=== PATIENT | female | born 1990 | race Two or more races ===

== ENCOUNTER 2018-11-24 09:30 | Emergency (ER) | payer MEDICAID ==
[~2018-11-24] VITALS: Ht 160 cm; Wt 102.5 kg
[2018-11-24 09:35] VITALS: BP 124/75
[2018-11-24 10:28] LABS: Urine Bacteria FEW /hpf (None Seen); Urine Blood Negative /uL (Negative); Urine Mucus FEW (None Seen); Urine Specific Gravity 1.021 (1.001-1.035); Urine WBC 1 /hpf (0 - 5)
== END 2018-11-24 11:21 | disposition home or self-care (01) ==
LOC: ER 09:32
DX: R10.2 Pelvic and perineal pain (principal)
CPT/HCPCS: 81001; 81025

== ENCOUNTER 2019-03-24 14:39 | Emergency (ER) | payer MEDICAID ==
[2019-03-24 15:06] VITALS: BP 120/93
[2019-03-24 16:20] LABS: Urine Bacteria FEW /hpf (None Seen); Urine Blood Negative /uL (Negative); Urine Specific Gravity 1.005 (1.001-1.035); Urine WBC <1 /hpf (0 - 5)
[2019-03-24] MEDS ORDERED: KETOROLAC TROMETH 60MG/2ML VIAL IM ONE (17:15)
== END 2019-03-24 17:54 | disposition home or self-care (01) ==
LOC: ER 14:56
DX: R10.2 Pelvic and perineal pain (principal); F12.10 Cannabis abuse, uncomplicated
CPT/HCPCS: 76856; 81001; 81025; 96372; 99284; J1885

== ENCOUNTER 2022-10-07 01:42 | Emergency (ER) | payer MEDICAID ==
[~2022-10-07] VITALS: Ht 160 cm; Wt 100.8 kg
[2022-10-07 08:20] VITALS: BP 116/78
[2022-10-08] MEDS ORDERED: HYDR-4902 PO (21:00)
[2022-10-08] MEDS ORDERED: ZOFR4T PO (21:00)
== END 2022-10-07 08:22 | disposition left against medical advice (07) ==
LOC: ER 01:44
DX: M25.572 Pain in left ankle and joints of left foot (principal); Z53.21 Procedure and treatment not carried out due to patient leaving prior to being seen by health care provider
CPT/HCPCS: 73610

== ENCOUNTER 2022-10-08 16:22 | Emergency (ER) | payer MEDICAID ==
[~2022-10-08] VITALS: Ht 160 cm; Wt 101.3 kg
[2022-10-08] MEDS ORDERED: HYDROcodone-ACET 5/325MG TAB PO ONE (21:00)
[2022-10-08] MEDS ORDERED: ONDANSETRON ODT 4 MG TAB PO ONE (21:00)
[2022-10-08] MEDS ORDERED: HYDR-4902 PO (21:00)
[2022-10-08] MEDS ORDERED: ZOFR4T PO (21:00)
[2022-10-08 21:16] VITALS: BP 97/64
== END 2022-10-08 21:18 | disposition home or self-care (01) ==
LOC: ER 16:22
DX: S92.355A Nondisplaced fracture of fifth metatarsal bone, left foot, initial encounter for closed fracture (principal); Z79.1 Long term (current) use of non-steroidal anti-inflammatories (NSAID); Z79.899 Other long term (current) drug therapy; X50.1XXA Overexertion from prolonged static or awkward postures, initial encounter; Y93.E1 Activity, personal bathing and showering; Y92.89 Other specified places as the place of occurrence of the external cause; Y99.8 Other external cause status
CPT/HCPCS: 29515; 73610; 73630; 99284; Q0162

== ENCOUNTER 2023-04-10 20:47 | Emergency (ER) | payer MEDICAID, OTHER ==
[~2023-04-10] VITALS: Ht 160 cm; Wt 99.3 kg
[~2023-04-10 20:47] MED LIST: HYDR-4902 PO; ZOFR4T PO
[2023-04-10 21:03] VITALS: BP 116/93; PULSE 98; RESP 18; O2SAT 100
== END 2023-04-11 00:17 | disposition left against medical advice (07) ==
LOC: ER 20:47
DX: R51.9 Headache, unspecified (principal); Z53.21 Procedure and treatment not carried out due to patient leaving prior to being seen by health care provider; V49.49XA Driver injured in collision with other motor vehicles in traffic accident, initial encounter; Y93.I9 Activity, other involving external motion; Y92.481 Parking lot as the place of occurrence of the external cause; Y99.8 Other external cause status